=== PATIENT | female | born 1940 | race Caucasian/White ===

== ENCOUNTER 2017-12-09 17:24 | Emergency (ER) | payer OTHER ==
[~2017-12-09] VITALS: Ht 167.6 cm; Wt 80.0 kg
[2017-12-09] MEDS ORDERED: IOHEXOL 350 MG/ML 10 ML VIAL (for RAD DIAG) IVCONTRAST ONE (17:25)
[2017-12-09 17:34] VITALS: BP 147/73; PULSE 89; RESP 20; TEMP 97.7; O2SAT 100
[2017-12-09] MEDS ORDERED: METO25TA3 PO (17:42)
[2017-12-09] MEDS ORDERED: RANE1000 PO (17:42)
[2017-12-09] MEDS ORDERED: GLIM1TAB PO (17:42)
[2017-12-09] MEDS ORDERED: SODIUM CHLORIDE 0.9% FLUSH 10 ML FLUSH IV FLUSH PRN (17:45)
[2017-12-09 17:46] VITALS: O2SAT 99
--- NOTE | 2017-12-09 17:53 | PD ---
HPI Chief Complaint: Device Engineer Problem Time Seen by Provider: 17:40 Travel History International Travel<30 days: No Contact w/Intl Traveler<30days: No Traveled to known affect area: No History of Present Illness HPI This is a 77-year-old female who presents via EMS for evaluation of bloody drainage into her biliary drainage bag. The patient provides a history of being admitted to [facility] a few weeks ago with a common bile duct stone obstruction. A biliary drainage was placed. She is reportedly being referred to [facility] or [facility] for further treatment of this issue. She has had a home health care nurse come by on a daily basis in order to evaluate her drain. Yesterday the tube is obstructed and was not draining. Today prior to arrival it began draining again but it was blood-tinged. She called Dr. Jo's office and was told to come to [place] as opposed to [facility] where her procedure was done. She reports that she has had pain in her epigastrium and right upper quadrant since the previous hospitalization at [facility] but denies any acute worsening of pain. She reports that she has had fatigue since then as well. She denies any acutely new symptoms. She denies fevers or chills. PFSH Past Medical History Chest Pain: Yes Diabetes: Yes Patient Takes Glucophage: Yes Gastrointestinal Disorders: Yes (ulcers, strictures with dilitation) Hypertension: Yes Influenza Vaccination: No Past Surgical History Abdominal Surgery: Yes (biliary drain in place, gastric bypass) Cholecystectomy: Yes Hysterectomy: Yes Social History Alcohol Use: No Tobacco Use: No Substance Use: No Allergies-Medications (Allergen,Severity, Reaction): Coded Allergies: No Known Allergies (Unverified , 12/09/17) Reported Meds & Prescriptions Reported Meds & Active Scripts Active Reported Glimepiride 1 Mg Tab 1 Mg PO DIRECTED Take with breakfast or first main meal Metoprolol Tartrate 25 Mg Tab 25 Mg PO BID Ranexa ER 12 HR (Ranolazine) 1,000 Mg Tab 1,000 Mg PO BID Review of Systems Except as stated in HPI: all other systems reviewed are Neg Physical Exam Narrative GENERAL: Pleasant well-developed well-nourished female no acute distress SKIN: Warm and dry. HEAD: Atraumatic. Normocephalic. EYES: Pupils equal and round. No scleral icterus. No injection or drainage. ENT: No nasal bleeding or discharge. Mucous membranes pink and moist. NECK: Trachea midline. No JVD. CARDIOVASCULAR: Regular rate and rhythm. No murmur appreciated. RESPIRATORY: No accessory muscle use. Clear to auscultation. Breath sounds equal bilaterally. GASTROINTESTINAL: Abdomen soft, n mild epigastric and right upper quadrant tenderness without guarding. Biliary drainage is intact. There is serous blood -tinged fluid noted in the bag. MUSCULOSKELETAL: No obvious deformities. No clubbing. No cyanosis. No edema. NEUROLOGICAL: Awake and alert. No obvious cranial nerve deficits. Motor grossly within normal limits. Normal speech. PSYCHIATRIC: Appropriate mood and affect; insight and judgment normal. Data Data Last Documented VS Vital Signs Date Time Temp Pulse Resp B/P (MAP) Pulse Ox O2 Delivery O2 Flow Rate FiO2 12/09/17 17:46 99 Room Air 12/09/17 17:34 97.7 89 20 147/73 (97) Orders Orders Complete Blood Count With Diff (12/09/17 17:40) Comprehensive Metabolic Panel (12/09/17 17:40) Lipase (12/09/17 17:40) Prothrombin Time / Inr (Pt) (12/09/17 17:40) Act Partial Throm Time (Ptt) (12/09/17 17:40) Iv Access Insert/Monitor (12/09/17 17:40) Ecg Monitoring (12/09/17 17:40) Oximetry (12/09/17 17:40) Sodium Chloride 0.9% Flush (Ns Flush) (12/09/17 17:45) Ct Abd/Pel W Iv Contrast(Rout) (12/09/17 17:48) Iohexol 350 Inj (Omnipaque 350 Inj) (12/09/17 17:25) Ed Discharge Order (12/09/17 21:09) Labs Laboratory Tests Test 12/09/17 18:29 White Blood Count 10.4 TH/MM3 Red Blood Count 3.87 MIL/MM3 Hemoglobin 12.4 GM/DL Hematocrit 36.2 % Mean Corpuscular Volume 93.5 FL Mean Corpuscular Hemoglobin 32.1 PG Mean Corpuscular Hemoglobin Concent 34.4 % Red Cell Distribution Width 14.5 % Platelet Count 420 TH/MM3 Mean Platelet Volume 8.1 FL Neutrophils (%) (Auto) 72.7 % Lymphocytes (%) (Auto) 17.9 % Monocytes (%) (Auto) 7.1 % Eosinophils (%) (Auto) 1.5 % Basophils (%) (Auto) 0.8 % Neutrophils # (Auto) 7.6 TH/MM3 Lymphocytes # (Auto) 1.9 TH/MM3 Monocytes # (Auto) 0.7 TH/MM3 Eosinophils # (Auto) 0.2 TH/MM3 Basophils # (Auto) 0.1 TH/MM3 CBC Comment DIFF FINAL Differential Comment Prothrombin Time 10.8 SEC Prothromb Time International Ratio 1.1 RATIO Activated Partial Thromboplast Time 25.6 SEC Blood Urea Nitrogen 17 MG/DL Creatinine 1.00 MG/DL Random Glucose 139 MG/DL Total Protein 8.3 GM/DL Albumin 3.3 GM/DL Calcium Level 9.5 MG/DL Alkaline Phosphatase 287 U/L Aspartate Amino Transf (AST/SGOT) 81 U/L Alanine Aminotransferase (ALT/SGPT) 42 U/L Total Bilirubin 1.4 MG/DL Sodium Level 137 MEQ/L Potassium Level 3.6 MEQ/L Chloride Level 101 MEQ/L Carbon Dioxide Level 25.6 MEQ/L Anion Gap 10 MEQ/L Estimat Glomerular Filtration Rate 53 ML/MIN Lipase 175 U/L [facility] Medical Decision Making Medical Screen Exam Complete: Yes Emergency Medical Condition: Yes Medical Record Reviewed: Yes Differential Diagnosis Clogged biliary catheter versus bleeding diathesis versus obstructed common bile duct versus cholangitis Narrative Course I discussed with Dr. Fernandez who is on-call for Dr. Jo. He recommends lab work and a CT of the abdomen and pelvis. The patient has remained stable during her hospital stay. CT abdomen and pelvis reveals CONCLUSION: 1. Biliary drainage catheter as described above. The common bile duct is distended despite the catheter appearing normally positioned. 2. Small subcapsular fluid collection of the liver where the catheter enters, probably a seroma. 3. Chronic and surgical changes elsewhere in the abdomen and pelvis as above without acute abnormality demonstrated. 4. Mild atelectasis of the lung bases. CBC is unremarkable. CMP reveals glucose of 139, total bilirubin 1.4, AST 81, ALP 287. I discussed the findings with Dr. Fernandez recommends that the patient follow-up as an outpatient with Dr. Jo. Diagnosis Primary Impression: Common bile duct dilation Additional Impression: Common bile duct obstruction Referrals: Melissa Bailey MD Additional Instructions: Follow-up with Dr. Jo. Return for any emergent medical conditions. Med/Other Pt SpecificInfo: No Change to Meds Disposition: 01 DISCHARGE HOME Condition: Stable Mikhail Prescott Dec 09, 2017 17:53
[2017-12-09 18:44] LABS: AUTOMATED NEUTROPHIL # 7.6 TH/MM3 (1.8-7.7); BASOPHIL # 0.1 TH/MM3 (0-0.2); BASOPHIL % 0.8 % (0.0-2.0); EOSINOPHIL # 0.2 TH/MM3 (0-0.4); EOSINOPHIL % 1.5 % (0.0-4.0); HEMATOCRIT 36.2 % (35.0-46.0); HEMOGLOBIN 12.4 GM/DL (11.6-15.3); LYMPH % 17.9 % (9.0-44.0); LYMPHOCYTE # 1.9 TH/MM3 (1.0-4.8); MEAN CELL VOLUME 93.5 FL (80.0-100.0); MEAN CORPUSCULAR HEMOGLOBIN 32.1 PG (27.0-34.0); MEAN CORPUSCULAR HGB CONC 34.4 % (32.0-36.0); MEAN PLATELET VOLUME 8.1 FL (7.0-11.0); MONO % 7.1 % (0.0-8.0); MONOCYTE # 0.7 TH/MM3 (0-0.9); NEUT % 72.7 % (16.0-70.0); PLATELET COUNT 420 TH/MM3 (150-450); RED BLOOD COUNT 3.87 MIL/MM3 (4.00-5.30); RED CELL DISTRIBUTION WIDTH 14.5 % (11.6-17.2); WHITE BLOOD COUNT 10.4 TH/MM3 (4.0-11.0)
[2017-12-09 18:56] LABS: INTERNATIONAL NORMALIZED RATIO 1.1 RATIO; PROTHROMBIN TIME - PATIENT 10.8 SEC (9.8-11.6)
[2017-12-09 19:08] LABS: ALT (GPT) 42 U/L (10-53)
[2017-12-09 19:10] LABS: ALKALINE PHOSPHATASE 287 U/L (45-117); TOTAL BILIRUBIN ADULT 1.4 MG/DL (0.2-1.0); TOTAL PROTEIN 8.3 GM/DL (6.4-8.2)
[2017-12-09 19:21] LABS: ALBUMIN 3.3 GM/DL (3.4-5.0); AST (GOT) 81 U/L (15-37); BICARBONATE 25.6 MEQ/L (21.0-32.0); BLOOD UREA NITROGEN 17 MG/DL (7-18); CALCIUM 9.5 MG/DL (8.5-10.1); CHLORIDE 101 MEQ/L (98-107); GLOMERULAR FILTRATION RATE 53 ML/MIN (>89); GLUCOSE,RANDOM 139 MG/DL (74-106); SODIUM (NA) 137 MEQ/L (136-145)
--- NOTE | 2017-12-09 20:25 | RADRPT ---
EXAM DATE/TIME: 12/09/2017 20:04 [place] COMPARISON: No previous studies available for comparison. INDICATIONS : Biliary drain placed two weeks ago. Drain became clogged last night. IV CONTRAST: 80 cc Omnipaque 350 (iohexol) IV ORAL CONTRAST: No oral contrast ingested. RADIATION DOSE: 10.70 CTDIvol (mGy) MEDICAL HISTORY : Hypertension. Ulcers. SURGICAL HISTORY : Gastric bypass. Cholecystectomy.biliary drain ENCOUNTER: Initial ACUITY: 1 day PAIN SCALE: 5/10 LOCATION: abdomen TECHNIQUE: Volumetric scanning of the abdomen and pelvis was performed. Using automated exposure control and ad justment of the mA and/or kV according to patient size, radiation dose was kept as low as reasonably achievable to obtain optimal diagnostic quality images. DICOM format image data is available electro nically for review and comparison. FINDINGS: There is an internal/external biliary drainage catheter. Distal tip is in the duodenum. The common bi le duct is distended, measures approximately 13 mm as it enters the pancreatic head. There is no intr ahepatic lower distention but there is biliary air, not unexpected. Patient has had previous cholecys tectomy. Where the drainage catheter enters the liver is a small subcapsular fluid collection measuri ng approximately 1 cm in maximal thickness, most likely a seroma. Spleen, pancreas and adrenal glands are within normal limits. Patchy cortical thinning/scarring seen in both kidneys. No stones or obstructive uropathy seen. Patient has had previous bowel surgery with a left lower quadrant anastomosis. No obstruction or acut e inflammatory changes are seen. There is florid diverticulosis of the sigmoid colon. Gastric bypass changes are noted. Previous hysterectomy. No free fluid. Visualized lung bases have trace atelectasis, mostly on the rig ht. CONCLUSION: 1. Biliary drainage catheter as described above. The common bile duct is distended despite the cathet er appearing normally positioned. 2. Small subcapsular fluid collection of the liver where the catheter enters, probably a seroma. 3. Chronic and surgical changes elsewhere in the abdomen and pelvis as above without acute abnormalit y demonstrated. 4. Mild atelectasis of the lung bases. Wm Brown MD on December 09, 2017 at 20:18 Board Certified Radiologist. This report was verified electronically.
== END 2017-12-09 21:44 | disposition home or self-care (01) ==
LOC: NEPC 17:24
DX: K83.8 Other specified diseases of biliary tract (principal); K83.1 Obstruction of bile duct; E11.9 Type 2 diabetes mellitus without complications; I10 Essential (primary) hypertension; Z98.84 Bariatric surgery status; Z79.84 Long term (current) use of oral hypoglycemic drugs
CPT/HCPCS: 74177; 80053; 83690; 85025; 85610; 85730; 99284; Q9967